=== PATIENT | female | born 1965 | race Two or more races ===

== ENCOUNTER 2021-09-30 20:10 | Inpatient (IN) | payer MEDICAID ==
[~2021-09-30] VITALS: Ht 160 cm; Wt 68.0 kg
[2021-09-30 20:19] VITALS: BP 104/51
--- NOTE | 2021-09-30 20:24 | NUR ---
PT TAKEN TO BED 02 VIA WHEELCHAIR.
[2021-09-30] MEDS ORDERED: NACL 0.9% 1,000 ML IV ONE ×2 (20:50→21:55)
--- NOTE | 2021-09-30 20:50 | NUR ---
56 Y.O F BIB C/O abdominal pain x 2 days. Patient reported, had lower abdominal pain, fever, chest pain for 2 days. DENIES N/V/D, SON AND CHEST PAIN. PAIN IS A 8/10 IN THE LOWER ABDOMEN. PT SAID SHE ALREADY HAS A BLADDER INFECTION THAT SHE WAS TAKING ANTIBIOTICS FOR. PT IS PARALYSED FROM THE WAIST DOWN. VITALS WNL, NO FEVER, SKIN INTACT AND INCONTENT OF BOWEL AND BLADDER. HX: LUPUS NKA
[2021-09-30] MEDS ORDERED: ONDANSETRON 4 MG/2 ML VIAL IVP ONE (21:05)
[2021-09-30] MEDS ORDERED: MORPHINE SULFATE 4 MG/ML SYR IVP ONE (21:05)
[2021-09-30 21:09] LABS: HEMATOCRIT 28.7 % (36-48); HEMOGLOBIN 9.9 g/dL (12.0-16.0); MEAN CORPUSCULAR HEMOGLOBIN 28 pg (27-31); MEAN CORPUSCULAR HGB CONC 34 g/dL (33-37); MEAN CORPUSCULAR VOLUME 81.9 fL (80-94); PLATELET COUNT (AUTO) 317 K/uL (140-450); RED BLOOD CELL COUNT(AUTO) 3.51 MIL/uL (4.20-5.40); RED CELL DISTRIBUTION WIDTH 13.4 % (11.6-13.7); WHITE BLOOD COUNT (AUTO) 23.1 K/uL (4.8-10.8)
--- NOTE | 2021-09-30 21:20 | NUR ---
PT TAKEN TO CT
[2021-09-30] MEDS ORDERED: cefTRIAXone 1,000 MG VIAL ONE (21:23)
[2021-09-30 21:30] LABS: ALBUMIN 2.2 g/dL (3.4-5.0); ANION GAP 13.7 (8-16); CARBON DIOXIDE 24.8 mmol/L (21-32); CREATININE 0.9 mg/dL (0.6-1.3); TOTAL BILIRUBIN 1.1 mg/dL (0.0-1.0)
[2021-09-30 21:33] LABS: POTASSIUM 2.5 mmol/L (3.5-5.1)
[2021-09-30 21:56] LABS: LYMPHOCYTES % (MANUAL) 5 % (20-46); MONOCYTES % (MANUAL) 3 % (5-12)
[2021-09-30 23:14] LABS: APPEARANCE,URINE CLEAR (CLEAR); BILIRUBIN,URINE NEGATIVE (NEGATIVE); BLOOD, URINE NEGATIVE (NEGATIVE); COLOR,URINE ORANGE (YELLOW); LEUKOCYTE ESTERASE ,URINE 2+ (NEGATIVE); NITRITE, URINE POSITIVE (NEGATIVE); UGLUCOSE 1+ (NEGATIVE)
[2021-09-30 23:33] LABS: RBC,URINE 0-5 /HPF (0-5); WBC,URINE TOO MANY TO COUNT /HPF (0-5)
[2021-09-30 23:48] LABS: BARBITURATE, URINE NEGATIVE ng/ml (NEG <=200); BENZODIAZEPINE, URINE NEGATIVE ng/mL (NEG <=200); CANNABINOID, URINE NEGATIVE ng/mL (NEG <=50); COCAINE, URINE NEGATIVE ng/mL (NEG <=300); OPIATE, URINE POSITIVE ng/mL (NEG <=2000); PHENCYCLIDINE SCREEN,URINE NEGATIVE ng/mL (NEG <=25)
[2021-09-30] MEDS ORDERED: KCL 20 MEQ/WATER INJ PREMIX 200 ML IV ONE (23:55)
--- NOTE | 2021-10-01 00:35 | NUR ---
UNABLE TO GET MED REC FROM PT IN THE ER. TRY AND CALL FAMILY IN THE MORNING TO RECIEVE MED REC.
--- NOTE | 2021-10-01 00:45 | NUR ---
PATIENT WAS BROUGHT TO MST UNIT FROM ER VIA GURNEY AAOX3. ON ROOM AIR. NO SOB NOTED. RESPIRATION EVEN UNLABORED. TRANSFERRED TO BED SAFELY. ALL SAFETY PRECAUTIONS ARE IN PLACE. ORIENTED TO CALL LIGHT, ROOM AND STAFF. SKIN INTACT. MRSA SCREENING DONE. CALL LIGHT WITHIN REACH. WILL CONTINUE TO MONITOR PT.
--- NOTE | 2021-10-01 01:10 | NUR ---
K-RIDER ADMINISTERED ORDERED.
[2021-10-01] MEDS: NACL 0.9% 1,000 ML IV SCH ×4 (01:30→20:00)
[2021-10-01 04:00] VITALS: BP 110/46
--- NOTE | 2021-10-01 07:20 | NUR ---
BEDSIDE ENDORSEMENT GIVEN TO AM NURSE FOR CONTINUITY OF CARE. PT STABLE.
--- NOTE | 2021-10-01 07:22 | NUR ---
RECEIVED REPORT FROM SUPERVISOR SCREEN PRINTING NURSE FOR CONTINUITY OF CARE. PT IN BED SLEEPING AT THIS TIME. RESPIRATIONS ARE EVEN AND UNLABORED ON ROOM AIR. NO SIGNS OF DISTRESS NOTED. NOTED PT IS PERSPIRING, REMOVED A FEW BLANKETS FROM PT. PT IS ALERT AND ORIENTED X4, ABLE TO FOLLOW COMMANDS, ABLE TO VERBALIZE NEEDS. SKIN INTACT. IV NOTED TO R AC 20G. CALL LIGHT WITHIN REACH. ALL SAFETY MEASURES IN PLACE. WILL CONTINUE TO MONITOR.
[2021-10-01 08:00] VITALS: BP 142/53
[2021-10-01] MEDS: HYDROcodone/APAP 5/325 MG 1 TAB TAB PO PRN ×2 (08:24→19:20)
--- NOTE | 2021-10-01 08:25 | NUR ---
PT COMPLAINING OF PAIN. MEDICATED PER MD ORDER. WILL CONTINUE TO MONITOR.
[2021-10-01 08:35] LABS: ANION GAP 9.5 (8-16); CARBON DIOXIDE 25.1 mmol/L (21-32); CREATININE 0.6 mg/dL (0.6-1.3)
[2021-10-01 08:36] LABS: HEMATOCRIT 24.8 % (36-48); HEMOGLOBIN 8.4 g/dL (12.0-16.0); MEAN CORPUSCULAR HEMOGLOBIN 28 pg (27-31); MEAN CORPUSCULAR HGB CONC 34 g/dL (33-37); MEAN CORPUSCULAR VOLUME 81.8 fL (80-94); PLATELET COUNT (AUTO) 307 K/uL (140-450); RED BLOOD CELL COUNT(AUTO) 3.04 MIL/uL (4.20-5.40); RED CELL DISTRIBUTION WIDTH 13.9 % (11.6-13.7); WHITE BLOOD COUNT (AUTO) 24.3 K/uL (4.8-10.8)
[2021-10-01 09:02] LABS: POTASSIUM 2.6 mmol/L (3.5-5.1)
--- NOTE | 2021-10-01 09:05 | NUR ---
LAB CALLED TO REPORT CRITICAL VALUE, POTASSIUM IS 2.6, DR CABRERA MADE AWARE. WILL CONTINUE TO MONITOR.
--- NOTE | 2021-10-01 09:25 | NUR ---
WENT TO RE-ASSESS PT. PT IN BED RESTING AT THIS TIME. RESPIRATIONS ARE EVEN AND UNLABORED. NO SIGNS OF DISTRESS NOTED.
[2021-10-01] MEDS ORDERED: POTASSIUM CHLORIDE 10 MEQ TABER PO SCH (10:00)
[2021-10-01] MEDS ORDERED: POTASSIUM CHLORIDE 40 MEQ, LIDOCAINE MPF 1% 25 MG in NACL 0.9% 250 ML IV SCH (10:30)
--- NOTE | 2021-10-01 10:51 | NUR ---
PATIENT HAS BEEN SCREENED AND CATEGORIZED HIGH NUTRITION RISK. PATIENT WILL BE SEEN WITHIN 1-2 DAYS OF ADMISSION. 10/01/ REFERRAL RECEIVED FOR UNINTENTIONAL WEIGHT LOSS AND DECREASED APPETITE LEILANI ALVAREZ RD
[2021-10-01 12:00] VITALS: BP 94/68
[2021-10-01 12:48] LABS: BASOPHILS % (AUTO) 0.3 % (0.0-2.0); EOSINOPHILS # (AUTO) 0.1 K/uL (0-0.4); EOSINOPHILS % (AUTO) 0.4 % (0.0-4.0); LYMPHOCYTES # (AUTO) 1.8 K/uL (2.5-16.5); LYMPHOCYTES % (AUTO) 7.6 % (20.5-51.1); MONOCYTES # (AUTO) 2.4 K/uL (0.8-1.0); MONOCYTES % (AUTO) 9.8 % (1.7-9.3); NEUTROPHILS # (AUTO) 19.9 K/uL (1.8-7.7); NEUTROPHILS % (AUTO) 81.9 % (42.2-75.2); PLATELET COUNT,MANUAL 307 K/uL (150-450)
[2021-10-01 12:49] LABS: BASOPHILS # (AUTO) 0.1 K/uL (0.00-0.22); LYMPHOCYTES % (MANUAL) 6 % (20-46); MONOCYTES % (MANUAL) 7 % (5-12)
[2021-10-01] MEDS ORDERED: MAG SULF 2000 MG/WATER PREMIX 50 ML IV PRN (13:10)
[2021-10-01] MEDS ORDERED: HYDROcodone/APAP 5/325 MG 1 TAB TAB PO PRN (13:10)
[2021-10-01] MEDS ORDERED: ZOLPIDEM 5 MG TAB PO PRN (13:10)
[2021-10-01] MEDS ORDERED: DOCUSATE SODIUM 100 MG GELCAP PO PRN (13:10)
[2021-10-01] MEDS ORDERED: ONDANSETRON 4 MG/2 ML VIAL IM/IVP PRN (13:10)
[2021-10-01] MEDS ORDERED: POTASSIUM CHLORIDE 10 MEQ TABER PO PRN (13:10)
[2021-10-01] MEDS ORDERED: LORazepam 1 MG TAB PO PRN (13:20)
--- NOTE | 2021-10-01 13:24 | NUR ---
WENT TO CHECK ON PT. PT IN BED RESTING AT THIS TIME. NO S/S OF PAIN OR DISCOMFORT. WILL CONTINUE TO MONITOR.
--- NOTE | 2021-10-01 15:25 | NUR ---
DC PLANNING: THE PATIENT PRESENTED FROM HOME WITH C/O WORSENING LOWER ABDOMINAL PAIN WITH NAUSEA. BEING TREATED OP WITH CIPRO FOR UTI, WBC'S ON ADMISSION 23.1, BANDS 19, K+ 2.5, LACTIC ACID 3.1, ALK PHOS 228, UA POSITIVE. CT ABD/PELVIS SHOWS BILATERAL HYDROURETERONEPHROSIS, HEPATOMEGALY, DIVERTICULOSIS. TMAX TODAY 99.8, URINE AND BLOOD CULTURES IN PROCESS, STARTED ON ROCEPHIN, K+ RIDER GIVEN. ORDERS FOR UROLOGY CONSULT. CM ATTEMPTED TO SPEAK WITH PATIENT AT BEDSIDE, SHE WAS SLEEPING HEAVILY AND DID NOT AROUSE TO VERBAL STIMULUS. ANTICIPATE PATIENT WILL RETURN HOME WITH HER WHEN STABLE, CM WILL FOLLOW.
[2021-10-01] MEDS ORDERED: DEXTROSE 50% 50 ML SYR IVP PRN (15:40)
--- NOTE | 2021-10-01 15:49 | NUR ---
10/01/21 RD INITIAL ASSESSMENT COMPLETED PLEASE REFER TO NUTRITION ASSESSMENT UNDER CARE ACTIVITY FOR ESTIMATED NUTRITIONAL NEEDS. 1. CONTINUE REGULAR DIET TOLERATED 2. RECOMMEND ENSURE BID FOR NUTRITION SUPPORT 3. MONITOR PO INTAKE 4. RD TO FOLLOW-UP 2-3 DAYS, HIGH RISK LEILANI ALVAREZ, RD
[2021-10-01 16:00] VITALS: BP 128/58
[2021-10-01 16:00] LABS: PROTHROMBIN TIME 11.7 secs (10.8-13.4)
[2021-10-01] MEDS: INSULIN LISPRO SLIDING SCALE 100 UNITS/ML VIAL SUBQ PRN ×2 (17:01→20:59)
[2021-10-01] MEDS: BLOOD GLUCOSE MONITORING 1 DEV DEV FS SCH ×2 (17:02→20:58)
--- NOTE | 2021-10-01 17:02 | NUR ---
PT BLOOD GLUCOSE WAS 400. ADMINISTERED 10 UNITS INSULIN PER SLIDING SCALE. DR CABRREA MADE AWARE. WILL CONTINUE TO MONITOR.
[2021-10-01] MEDS ORDERED: METF-713 PO (17:06)
[2021-10-01] MEDS ORDERED: VANCOMYCIN PER PHARMACY MC PRN (17:50)
--- NOTE | 2021-10-01 17:58 | NUR ---
NOTICED PT WAS SWEATING. PT RUNNING LOW GRADE FEVER. COOLING MEASURES STARTED. WILL CONTINUE TO MONITOR.
[2021-10-01] MEDS: VANCOMYCIN 750 MG in DEXTROSE 5% 250 ML IV SCH (18:28)
--- NOTE | 2021-10-01 19:15 | NUR ---
LAB CALLED WITH CRITICAL VALUE, LACTIC ACID 3.5, DR CABRERA MADE AWARE. NEW ORDERS PLACED.
--- NOTE | 2021-10-01 19:20 | NUR ---
PT COMPLAINING OF PAIN. STATES PAIN IS 5/10. MEDICATED PER MD ORDER. WILL ENDORSE TO STOREKEEPER ENGINEERING NURSE.
--- NOTE | 2021-10-01 19:31 | NUR ---
ENDORSED PT TO CURING OVEN TENDER NURSE FOR CONTINUITY OF CARE. PT IS STABLE.
--- NOTE | 2021-10-01 19:33 | NUR ---
RECD. RESTING IN BED, AWAKE, A/OX2. ABLE TO VERBALIZED NEEDS. REORIENTED TO HOSPITAL SETTING. RESPIRATION EVEN AND UNLABORED. IV VANCOMYCIN INFUSING T 165 ML/HR, RIGHT AC G20. SAFETY MEASURES ENFORCED. BED IN THE LOWEST POSITION, SIDE RAILS UP, CALL LIGHT IN REACH. INCONTINENT. DENIES PAIN 0/10.
[2021-10-01 20:00] VITALS: BP 124/57
--- NOTE | 2021-10-01 20:00 | NUR ---
Patient's Plan of Care was discussed and reviewed with KYLER PEÑA.
[2021-10-01] MEDS: ACETAMINOPHEN 325 MG TAB PO PRN (20:48)
--- NOTE | 2021-10-01 20:48 | NUR ---
WITH FEVER 101.1, MEDICATED WITH TYLENOL. COLING MEASURES GIVEN.
[2021-10-01] MEDS: CEFEPIME 1,000 MG in DEXTROSE 5% 50 ML IV SCH (21:00)
--- NOTE | 2021-10-01 21:50 | NUR ---
TEMPERATURE CHECKED - 98.2 F. RESTING IN BED COMFORTABLY.
[2021-10-02] VITALS: BP 91/50
--- NOTE | 2021-10-02 | NUR ---
SLEEPING COMFORTABLY IN BED. RESPIRATION EVEN AND UNLABORED. DIAPER CHANGED.
[2021-10-02] MEDS: NACL 0.9% 1,000 ML IV SCH ×5 (02:40→23:18)
--- NOTE | 2021-10-02 03:00 | NUR ---
CLEANSED AND REPOSITIONED WITH BED WITH PILLOWS FOR COMFORT.
[2021-10-02 04:00] VITALS: BP 118/57
[2021-10-02] MEDS ORDERED: VANCOMYCIN 1,000 MG VIAL ONE (04:59)
[2021-10-02] MEDS: VANCOMYCIN 750 MG in DEXTROSE 5% 250 ML IV SCH (05:19)
[2021-10-02] MEDS: ACETAMINOPHEN 325 MG TAB PO PRN (06:08)
--- NOTE | 2021-10-02 06:08 | NUR ---
TEMPERATURE - 100.7, MEDICATED WITH TYLENOL, COOLING MEASURES GIVEN.
[2021-10-02] MEDS: BLOOD GLUCOSE MONITORING 1 DEV DEV FS SCH ×4 (06:28→20:50)
[2021-10-02] MEDS: INSULIN LISPRO SLIDING SCALE 100 UNITS/ML VIAL SUBQ PRN ×4 (06:29→20:56)
--- NOTE | 2021-10-02 07:10 | NUR ---
TEMPERATURE CHECKED - 99.8 F. CONTINUE COOLING MEASURES.
[2021-10-02 07:19] LABS: CARBON DIOXIDE 22.9 mmol/L (21-32); CREATININE 0.6 mg/dL (0.6-1.3)
[2021-10-02 07:30] LABS: BASOPHILS # (AUTO) 0.1 K/uL (0.00-0.22); BASOPHILS % (AUTO) 0.4 % (0.0-2.0); EOSINOPHILS # (AUTO) 0.2 K/uL (0-0.4); EOSINOPHILS % (AUTO) 0.9 % (0.0-4.0); HEMATOCRIT 22.6 % (36-48); HEMOGLOBIN 7.8 g/dL (12.0-16.0); LYMPHOCYTES # (AUTO) 2.1 K/uL (2.5-16.5); LYMPHOCYTES % (AUTO) 9.3 % (20.5-51.1); MEAN CORPUSCULAR HEMOGLOBIN 29 pg (27-31); MEAN CORPUSCULAR HGB CONC 35 g/dL (33-37); MEAN CORPUSCULAR VOLUME 83.2 fL (80-94); MONOCYTES # (AUTO) 2.3 K/uL (0.8-1.0); MONOCYTES % (AUTO) 9.8 % (1.7-9.3); NEUTROPHILS # (AUTO) 18.3 K/uL (1.8-7.7); NEUTROPHILS % (AUTO) 79.6 % (42.2-75.2); PLATELET COUNT (AUTO) 294 K/uL (140-450); RED BLOOD CELL COUNT(AUTO) 2.72 MIL/uL (4.20-5.40)
--- NOTE | 2021-10-02 07:30 | NUR ---
WILL ENDORSE TO AM SHIFT NURSE FOR CONTINUITY OF CARE.
--- NOTE | 2021-10-02 07:32 | NUR ---
RECEIVED PATIENT REPORT FROM WORKFORCE ADVISOR NURSE FOR CONTINUITY OF CARE. AWAKE, A/OX2. ABLE TO VERBALIZED NEEDS. REORIENTED TO HOSPITAL SETTING. RESPIRATION EVEN AND UNLABORED. IV SITE ON RAC 20 G INTACT AND PATENT, INFUSING FLUIDS WELL. PLAN OF CARE DISCUSSED. SAFETY MEASURES ENFORCED. BED IN THE LOWEST POSITION, SIDE RAILS UP, CALL LIGHT IN REACH. WILL CONTINUE TO MONITOR.
[2021-10-02 07:45] LABS: POTASSIUM 2.9 mmol/L (3.5-5.1)
[2021-10-02 08:00] VITALS: BP 108/54
[2021-10-02 08:03] LABS: CHOL/HDL RATIO 7.4 (1-4.5); MAGNESIUM 1.6 mg/dL (1.8-2.4); PHOSPHORUS 2.7 mg/dL (2.5-4.9)
[2021-10-02 08:08] LABS: T4 (THYROXINE) 10.3 ug/dL (4.5-12.0)
[2021-10-02] MEDS: TAMSULOSIN 0.4 MG CAP PO SCH (09:09)
[2021-10-02] MEDS: CEFEPIME 1,000 MG in DEXTROSE 5% 50 ML IV SCH ×2 (09:11→20:41)
[2021-10-02] MEDS: POTASSIUM CHLORIDE 20% 40 MEQ/15 ML UDC PO PRN (09:22)
[2021-10-02] MEDS ORDERED: POTASSIUM CHLORIDE 40 MEQ, LIDOCAINE MPF 1% 25 MG in NACL 0.9% 250 ML IV SCH (09:30)
--- NOTE | 2021-10-02 10:00 | NUR ---
INSERTED NEW IV ON LFA 22G. INTACT AND PATENT.
--- NOTE | 2021-10-02 10:10 | NUR ---
INSERTED NEW 16 FR BHAKTA CATHETER. 900 ML OUTPUT.
[2021-10-02 12:00] VITALS: BP 92/59
--- NOTE | 2021-10-02 14:50 | NUR ---
CHECKED ON PATIENT. PT IS STABLE. NO DISTRESS NOTED. WILL CONTINUE TO MONITOR.
[2021-10-02 16:00] VITALS: BP 143/59
--- NOTE | 2021-10-02 18:14 | NUR ---
ALL SCHEDULED MEDS GIVEN. PT IS STABLE. NO DISTRESS NOTED. WILL CONTINUE TO MONITOR.
--- NOTE | 2021-10-02 19:27 | NUR ---
ENDORSED TO COACH NURSE FOR CONTINUITY OF CARE. PT IS STABLE.
--- NOTE | 2021-10-02 19:40 | NUR ---
GET THE REPORT FROM MORNING NURSE VANDANA ,PATIENT IS LYING ON BED, PATIENT IS ALERT ORIENTED X3 , CALL LIGHT IS WITHIN THE REACH,WILL CONTINUE TO MONITOR PATIENT.
[2021-10-02 20:00] VITALS: BP 135/58
[2021-10-02] MEDS: HYDROcodone/APAP 5/325 MG 1 TAB TAB PO PRN (20:42)
--- NOTE | 2021-10-02 20:42 | NUR ---
PATIENT IS LYING ON BED, VITAL SIGN IS WITHIN THE NORMAL RANGE, PATIENT IS COMPLAINING OF PAIN IN HEAD 09/19 , NORCO 5/325 MG PO PRN IS GIVEN PER DOCTOR ORDER, WILL REASSESS PAIN LAVAL IN HOUR , CALL LIGHT IS WITHIN THE REACH, WILL CONTINUE TO MONITOR PATIENT,
[2021-10-03] VITALS: BP 134/69
--- NOTE | 2021-10-03 00:57 | NUR ---
PATIENT IS LYING ON BED, VITAL SIGN IS WITHIN THE NORMAL RANGE,ALL SCHEDULE MEDICATION IS GIVEN PER DOCTOR ORDER, PATIENT IS COMPLAINING OF NOT POOPED FROM LAST WEDNESDAY , GAVE COLACE PO PRN FOR CONSTIPATION PER DOCTOR ORDER, NO ANY COMPLAIN OF PAIN OR SHORTNESS OF BREATH AT THIS TIME, CALL LIGHT IS WITHIN THE REACH,WILL CONTINUE TO MONITOR PATIENT.
[2021-10-03] MEDS: HYDROcodone/APAP 5/325 MG 1 TAB TAB PO PRN ×3 (02:45→22:41)
--- NOTE | 2021-10-03 02:46 | NUR ---
PATIENT IS LYING ON BED, PATIENT IS COMPLAINING OF PAIN IN STOMACH 09/19, NORCO 5/325MG PO PRN IS GIVEN PER DOCTOR ORDER, VITAL SIGN IS WITHIN THE NORMAL RANGE, CALL LIGHT IS WITHIN THE REACH, WILL CONTINUE TO MONITOR PATIENT.
[2021-10-03 04:00] VITALS: BP 122/60
--- NOTE | 2021-10-03 04:17 | NUR ---
PATIENT IS LYING ON BED, VITAL SIGN IS WITHIN THE NORMAL RANGE, NO ANY COMPLAIN OF PAIN OR SHORTNESS OF BREATH AT THIS TIME, CALL LIGHT IS WITHIN THE REACH,WILL CONTINUE TO MONITOR PATIENT.
[2021-10-03] MEDS: BLOOD GLUCOSE MONITORING 1 DEV DEV FS SCH ×4 (06:49→20:49)
[2021-10-03 07:13] LABS: ANION GAP 8.9 (8-16); CARBON DIOXIDE 26.1 mmol/L (21-32); CREATININE 0.5 mg/dL (0.6-1.3)
[2021-10-03 07:27] LABS: BASOPHILS # (AUTO) 0.1 K/uL (0.00-0.22); BASOPHILS % (AUTO) 0.5 % (0.0-2.0); EOSINOPHILS # (AUTO) 0.3 K/uL (0-0.4); EOSINOPHILS % (AUTO) 1.8 % (0.0-4.0); HEMATOCRIT 22.6 % (36-48); HEMOGLOBIN 7.7 g/dL (12.0-16.0); LYMPHOCYTES # (AUTO) 2.4 K/uL (2.5-16.5); MEAN CORPUSCULAR HEMOGLOBIN 28 pg (27-31); MEAN CORPUSCULAR HGB CONC 34 g/dL (33-37); MEAN CORPUSCULAR VOLUME 83.1 fL (80-94); MONOCYTES # (AUTO) 1.7 K/uL (0.8-1.0); MONOCYTES % (AUTO) 10.7 % (1.7-9.3); NEUTROPHILS # (AUTO) 11.4 K/uL (1.8-7.7); PLATELET COUNT (AUTO) 327 K/uL (140-450); RED BLOOD CELL COUNT(AUTO) 2.73 MIL/uL (4.20-5.40); RED CELL DISTRIBUTION WIDTH 13.4 % (11.6-13.7); WHITE BLOOD COUNT (AUTO) 15.8 K/uL (4.8-10.8)
--- NOTE | 2021-10-03 07:30 | NUR ---
GAVE THE REPORT TO MORNING NURSE VANDANA FOR CONTINUOS OF CARE, PATIENT IS STABLE
--- NOTE | 2021-10-03 07:32 | NUR ---
RECEIVED PATIENT REPORT FROM ASSISTANT EDUCATION DIRECTOR NURSE FOR CONTINUITY OF CARE. AWAKE, A/OX3. ABLE TO VERBALIZED NEEDS. REORIENTED TO HOSPITAL SETTING. RESPIRATION EVEN AND UNLABORED. IV SITE ON LFA 22G INTACT AND PATENT, INFUSING FLUIDS WELL. PLAN OF CARE DISCUSSED. SAFETY MEASURES ENFORCED. BED IN THE LOWEST POSITION, SIDE RAILS UP, CALL LIGHT IN REACH. WILL CONTINUE TO MONITOR.
[2021-10-03 07:40] LABS: MAGNESIUM 1.4 mg/dL (1.8-2.4); PHOSPHORUS 3.7 mg/dL (2.5-4.9)
[2021-10-03 08:00] VITALS: BP 148/74
[2021-10-03] MEDS: TAMSULOSIN 0.4 MG CAP PO SCH (08:59)
[2021-10-03] MEDS: CEFEPIME 1,000 MG in DEXTROSE 5% 50 ML IV SCH ×2 (09:01→20:34)
--- NOTE | 2021-10-03 09:10 | NUR ---
ALL SCHEDULED MEDS GIVEN. PT IS STABLE. NO DISTRESS NOTED. WILL CONTINUE TO MONITOR.
[2021-10-03] MEDS: POTASSIUM CHLORIDE 20% 40 MEQ/15 ML UDC PO PRN (10:48)
[2021-10-03] MEDS: INSULIN LISPRO SLIDING SCALE 100 UNITS/ML VIAL SUBQ PRN ×3 (11:22→20:51)
--- NOTE | 2021-10-03 11:22 | NUR ---
BS CHECK WAS 391. ADMINISTERED 10 UNITS OF INSULIN SQ PER MD ORDERED.
[2021-10-03 12:00] VITALS: BP 118/63
--- NOTE | 2021-10-03 13:47 | NUR ---
10/03/21 RD FOLLOW UP COMPLETED PLEASE REFER TO NUTRITION ASSESSMENT UNDER CARE ACTIVITY FOR ESTIMATED NUTRITIONAL NEEDS. 1. CONTINUE CARDIAC PUREE DIET TOLERATED 2. RECOMMEND GLUCERNA TID FOR NUTRITION SUPPORT 3. MONITOR PO INTAKE AND GI SYMPTOMS -IF PT CONTINUES TO BE CONSTIPATED, RECOMMEND MEDICATION FOR GI MOTILITY OR STOOL SOFTENER 4. RD TO FOLLOW-UP 3-5 DAYS, MODERATE RISK LEILANI ALVAREZ RD
--- NOTE | 2021-10-03 15:29 | NUR ---
CHECKED ON PATIENT. PT IS STABLE. NO DISTRESS NOTED. WILL CONTINUE TO MONITOR.
[2021-10-03 16:00] VITALS: BP 140/72
--- NOTE | 2021-10-03 17:57 | NUR ---
BS CHECK WAS 166. ADMINISTERED 2 UNITS OF INSULIN SQ PER MD ORDERED.
--- NOTE | 2021-10-03 19:20 | NUR ---
ENDORSED TO RESEARCH STATISTICIAN NURSE FOR CONTINUITY OF CARE. PT IS STABLE.
--- NOTE | 2021-10-03 19:21 | NUR ---
RECEIVED REPORT FROM MORNING SHIFT NURSE. PT IN BED RESTING AT THIS TIME. RESPIRATIONS ARE EVEN AND UNLABORED ON ROOM AIR. NO SIGNS OF DISTRESS NOTED. NO S/S OF PAIN OR DISCOMFORT NOTED. PT IS ALERT AND ORIENTED X4. ABLE TO VERBALIZE NEEDS, ABLE TO FOLLOW COMMANDS. PT HAS IV TO L AC, 20G. CALL LIGHT WITHIN REACH. ALL SAFETY MEASURES IN PLACE. WILL CONTINUE TO MONITOR.
[2021-10-03 20:00] VITALS: BP 130/60
--- NOTE | 2021-10-03 20:36 | NUR ---
ALL SCHEDULED PRESCRIBED MEDICATION WAS GIVEN PER MD'S ORDER. PT TOLERATING IT WELL. WILL CONTINUE TO MONITOR.
[2021-10-03] MEDS: NACL 0.9% 1,000 ML IV SCH (21:02)
--- NOTE | 2021-10-03 22:41 | NUR ---
PRN PAIN MEDICATION WAS GIVEN TO PT PER MD'S ORDER DUE TO STOMACH ACHE. CRACKERS, GELLO AND WATER WAS ALSO PROVIDED TO PT. WILL CONTINUE AND MONITOR.
--- NOTE | 2021-10-03 23:14 | NUR ---
PT COMPLAINED OF ACID REFLUX AND CONSTIPATION. NOTIFIED DR. HARRELL WITH NEW ORDERS CARRIED OUT. WILL CONTINUE TO MONITOR.
[2021-10-04] VITALS: BP 108/57
[2021-10-04] MEDS: CALCIUM CARBONATE 500 MG TAB.CHEW PO SCH ×2 (00:38→08:43)
[2021-10-04] MEDS: POLYETHYLENE GLYCOL 17 GM/PKT PO SCH ×2 (00:38→08:44)
[2021-10-04] MEDS: NACL 0.9% 1,000 ML IV SCH (00:38)
--- NOTE | 2021-10-04 00:38 | NUR ---
PRESCRIBED MIRALAX AND TUMS WAS GIVEN. PATIENT TOLERATING IT WELL. WILL CONTINUE TO MONITOR.
--- NOTE | 2021-10-04 03:00 | NUR ---
PT IS ON SLEEP. CHEST RISE AND FALL ASYMMETRICALLY WAS NOTED. RESPIRATIONS ARE EVEN AND UNLABORED ON ROOM AIR. NO SIGNS OF DISTRESS NOTED. CALL LIGHT WITHIN REACH. ALL SAFETY MEASURES IMPLEMENTED. WILL CONTINUE TO MONITOR.
[2021-10-04 04:00] VITALS: BP 126/70
[2021-10-04] MEDS: BLOOD GLUCOSE MONITORING 1 DEV DEV FS SCH ×2 (06:43→11:54)
--- NOTE | 2021-10-04 06:43 | NUR ---
BLOOD GLUCOSE WAS CHECKED AND IT WAS 157. 2 UNITS OF INSULIN WAS GIVEN PER MD'S ORDER.
[2021-10-04] MEDS: INSULIN LISPRO SLIDING SCALE 100 UNITS/ML VIAL SUBQ PRN ×2 (06:51→12:58)
[2021-10-04 07:09] LABS: BASOPHILS # (AUTO) 0.1 K/uL (0.00-0.22); BASOPHILS % (AUTO) 0.5 % (0.0-2.0); EOSINOPHILS # (AUTO) 0.5 K/uL (0-0.4); EOSINOPHILS % (AUTO) 3.3 % (0.0-4.0); HEMOGLOBIN 8.8 g/dL (12.0-16.0); LYMPHOCYTES # (AUTO) 2.9 K/uL (2.5-16.5); LYMPHOCYTES % (AUTO) 18.1 % (20.5-51.1); MEAN CORPUSCULAR HEMOGLOBIN 28 pg (27-31); MEAN CORPUSCULAR HGB CONC 34 g/dL (33-37); MEAN CORPUSCULAR VOLUME 83.2 fL (80-94); MONOCYTES # (AUTO) 1.6 K/uL (0.8-1.0); MONOCYTES % (AUTO) 9.6 % (1.7-9.3); NEUTROPHILS # (AUTO) 11.2 K/uL (1.8-7.7); NEUTROPHILS % (AUTO) 68.5 % (42.2-75.2); PLATELET COUNT (AUTO) 445 K/uL (140-450); RED BLOOD CELL COUNT(AUTO) 3.12 MIL/uL (4.20-5.40); RED CELL DISTRIBUTION WIDTH 13.6 % (11.6-13.7); WHITE BLOOD COUNT (AUTO) 16.3 K/uL (4.8-10.8)
[2021-10-04 07:27] LABS: ANION GAP 11.3 (8-16); CREATININE 0.6 mg/dL (0.6-1.3); POTASSIUM 3.3 mmol/L (3.5-5.1)
[2021-10-04 07:36] LABS: MAGNESIUM 1.6 mg/dL (1.8-2.4)
--- NOTE | 2021-10-04 07:37 | NUR ---
PT ENDORSED TO MORNING SHIFT FOR CONTINUITY OF CARE.
[2021-10-04 08:00] VITALS: BP 108/61
--- NOTE | 2021-10-04 08:19 | NUR ---
CHANGE OF SHIFT Received report from Ly/Nanci OVALLE. Patient is resting in bed. No acute distress noted. Noted with NS@60 running in IV. Call light within reach. Will continue to monitor.
[2021-10-04] MEDS: TAMSULOSIN 0.4 MG CAP PO SCH (08:42)
[2021-10-04] MEDS: CEFEPIME 1,000 MG in DEXTROSE 5% 50 ML IV SCH (08:46)
[2021-10-04] MEDS ORDERED: POLYETHYLENE GLYCOL 17 GM/PKT PO SCH (09:00)
[2021-10-04] MEDS ORDERED: CALCIUM CARBONATE 500 MG TAB.CHEW PO SCH (09:00)
[2021-10-04 12:00] VITALS: BP 112/54
[2021-10-04] MEDS ORDERED: SULF-954 PO ×2 (13:01→13:03)
--- NOTE | 2021-10-04 15:05 | NUR ---
Patient discharged home with family care. Patient given discharge instructions; verbalized understanding. Patient discharged with benavides catheter as ordered. IV discontinued; telemetry box returned to tech. Respirations even and unlabored; no acute distress noted. Picked up by . Wheelchaired out of unit by AMANDEEP.
== END 2021-10-04 15:05 | disposition home or self-care (01) | DRG 720 ==
LOC: MED 20:10 → MTU 23:52
DX: A41.59 Other Gram-negative sepsis (principal); E43 Unspecified severe protein-calorie malnutrition; G92.9 Unspecified toxic encephalopathy; G82.20 Paraplegia, unspecified; D63.8 Anemia in other chronic diseases classified elsewhere; M32.9 Systemic lupus erythematosus, unspecified; E87.1 Hypo-osmolality and hyponatremia; N13.6 Pyonephrosis; E11.9 Type 2 diabetes mellitus without complications; E78.5 Hyperlipidemia, unspecified; R65.20 Severe sepsis without septic shock; E87.6 Hypokalemia; F15.10 Other stimulant abuse, uncomplicated; K57.30 Diverticulosis of large intestine without perforation or abscess without bleeding; I10 Essential (primary) hypertension; Z20.822 Contact with and (suspected) exposure to COVID-19; E83.42 Hypomagnesemia; Z90.711 Acquired absence of uterus with remaining cervical stump; Z90.49 Acquired absence of other specified parts of digestive tract; Z68.26 Body mass index [BMI] 26.0-26.9, adult
CPT/HCPCS: 36415; 76770; 80048; 80053; 80305; 81001; 82948; 83036; 83605; 83690; 83735; 83880; 84100; 84134; 84436; 84443; 84484; 85025; 85610; 85730; 87040; 87081; 87086; 93005; 96365; 96375; 99291; J0692; J0696; J1644; J1815; J2001; J2270; J2405; J3370; J3475; J3480; J7030; J7060; Q0092

== ENCOUNTER 2022-04-18 11:40 | Inpatient (IN) | payer SELFPAY ==
[~2022-04-18] VITALS: Ht 160 cm; Wt 68.0 kg
[~2022-04-18 11:40] MED LIST: METF-713 PO; SULF-954 PO
[2022-04-18 11:49] VITALS: BP 131/69
[2022-04-18] MEDS ORDERED: NACL 0.9% 2,000 ML IV ONE (11:50)
[2022-04-18] MEDS ORDERED: KETOROLAC 15 MG/ML VIAL IVP ONE ×2 (11:50→16:40)
[2022-04-18] MEDS ORDERED: cefTRIAXone 2,000 MG in DEXTROSE 5% 100 ML IV ONE (11:50)
--- NOTE | 2022-04-18 11:53 | NUR ---
PT BIBA TO BED 8
[2022-04-18] MEDS ORDERED: ACETAMINOPHEN EXTRA STRENGTH 500 MG TAB ONE (11:57)
[2022-04-18] MEDS ORDERED: cefTRIAXone 2,000 MG VIAL ONE (11:57)
[2022-04-18] MEDS ORDERED: ACETAMINOPHEN EXTRA STRENGTH 500 MG TAB PO ONE (12:00)
--- NOTE | 2022-04-18 12:00 | NUR ---
57/F BIBA FROM HOME C/O RIGHT SIDED FLANK PAIN RADIATING TO ABD ONSET 3DAYS ACCOMPANIED BY NAUSEA AND DYSURIA. PT ORAL TEMP @ TRIAGE 102.7 ORAL. AAO4, NONAMBULATORY, REPORTS 10/10 PAIN. NOT ACTIVELY VOMITING. DENIES DIARRHEA. PMH: DM
--- NOTE | 2022-04-18 12:19 | NUR ---
EKG DONE AT BEDSIDE. BLOOD DRAWN AND SENT TO LAB. PT ON MONITOR. IV ESTABLISHED TO RIGHT AC WITH 20G.
--- NOTE | 2022-04-18 12:21 | NUR ---
XR AT BEDSIDE
--- NOTE | 2022-04-18 12:29 | NUR ---
FLU AND COVID SWAB COLLECTED AND SENT TO LAB
[2022-04-18 12:33] LABS: BASOPHILS # (AUTO) 0.1 K/uL (0.00-0.22); BASOPHILS % (AUTO) 0.5 % (0.0-2.0); HEMATOCRIT 34.3 % (36-48); HEMOGLOBIN 11.3 g/dL (12.0-16.0); LYMPHOCYTES % (AUTO) 17.3 % (20.5-51.1); MEAN CORPUSCULAR HEMOGLOBIN 25 pg (27-31); MEAN CORPUSCULAR HGB CONC 33 g/dL (33-37); MEAN CORPUSCULAR VOLUME 76.1 fL (80-94); MONOCYTES # (AUTO) 1.4 K/uL (0.8-1.0); MONOCYTES % (AUTO) 12.3 % (1.7-9.3); NEUTROPHILS # (AUTO) 8.2 K/uL (1.8-7.7); NEUTROPHILS % (AUTO) 69.9 % (42.2-75.2); PLATELET COUNT (AUTO) 287 K/uL (140-450); RED CELL DISTRIBUTION WIDTH 16.6 % (11.6-13.7); WHITE BLOOD COUNT (AUTO) 11.7 K/uL (4.8-10.8)
--- NOTE | 2022-04-18 12:45 | NUR ---
Patient was turned and repositioned, fresh diaper applied. Patient had a bowel movement.
[2022-04-18 12:47] LABS: ALBUMIN 3.1 g/dL (3.4-5.0)
[2022-04-18 13:06] LABS: ANION GAP 13.2 (8-16); ASPARTATE AMINOTRANSFERASE 25 U/L (15-37); CARBON DIOXIDE 20.8 mmol/L (21-32); CHLORIDE 95 mmol/L (98-107); CREATININE 1.4 mg/dL (0.6-1.3); GFR ARICAN-AMERICAN 50 mL/min (>90); GLUCOSE 238 mg/dL (74-106); SODIUM SERUM 126 mmol/L (136-145); TOTAL BILIRUBIN 0.4 mg/dL (0.0-1.0); UREA NITROGEN, BLOOD 30 mg/dL (7-18)
--- NOTE | 2022-04-18 13:36 | NUR ---
Patient taken to CT via gurney.
--- NOTE | 2022-04-18 14:16 | NUR ---
# 8 FR Urinary catheter inserted utilizing sterile technique. Immediate return of 30 ml orange cloudy urine noted. Urine sample collected and sent to lab. Pt tolerated procedure well.
[2022-04-18 15:16] LABS: APPEARANCE,URINE CLEAR (CLEAR); BILIRUBIN,URINE NEGATIVE (NEGATIVE); BLOOD, URINE 2+ (NEGATIVE); COLOR,URINE YELLOW (YELLOW); LEUKOCYTE ESTERASE ,URINE 2+ (NEGATIVE); NITRITE, URINE POSITIVE (NEGATIVE); PH,URINE 5.5 (5.0-9.0); UGLUCOSE TRACE (NEGATIVE)
--- NOTE | 2022-04-18 15:50 | NUR ---
Patient was turned and repositioned.
[2022-04-18 16:06] LABS: RBC,URINE 11-20 (MOD) /HPF (0-5)
--- NOTE | 2022-04-18 16:07 | NUR ---
Attempted to call , no answer. Unable to leave voicemail.
--- NOTE | 2022-04-18 16:09 | NUR ---
Med recon complete.
--- NOTE | 2022-04-18 17:02 | NUR ---
Patient was turned and repositioned. Fresh diaper was applied.
--- NOTE | 2022-04-18 17:18 | NUR ---
Spoke to Dr. Medina was informed, he will input admit orders in 10-15 minutes.
[2022-04-18] MEDS ORDERED: NACL 0.9% 1,000 ML IV ONE (18:05)
[2022-04-18] MEDS ORDERED: INSULIN LISPRO SLIDING SCALE 100 UNITS/ML VIAL SUBQ PRN (18:05)
[2022-04-18] MEDS ORDERED: BLOOD GLUCOSE MONITORING 1 DEV DEV FS SCH (18:17)
--- NOTE | 2022-04-18 19:17 | NUR ---
Report given to YAMILE Freire for transfer of care.
--- NOTE | 2022-04-18 21:50 | NUR ---
Patient will be admitted to care of NURIA FINELY. Admited to TELEMETRY. Will go to room 118. Belongings list completed. Report to RACHELL OVALLE.
--- NOTE | 2022-04-18 21:53 | NUR ---
TURNED PT Q2, SKIN BREAKDOWN NOTED , OLD HEALED TUNNELING NOTED ON SACRUM, PICS TAKEN, EXCORIATION NOTE IN PERINIUM FROM STOOLS, PT CLEANED AND KEPT DRY BUT STOOL KEEPS LEAKING OUT. PUREWICK EXCHANGED
--- NOTE | 2022-04-18 22:06 | NUR ---
rn notes received patient from ER, per ASSOCIATE DIRECTOR FINANCEMD made aware of k of 3.0 and no order was given at this time Addendum: 04/18/22 at 2207 by Agency 04 RN RN rn notes received patient from ER, per ASSOCIATE DIRECTOR FINANCEMD YAMILE made aware of k of 3.0
[2022-04-18] MEDS ORDERED: KCL 20 MEQ/WATER INJ PREMIX 100 ML IV SCH (23:00)
[2022-04-18] MEDS ORDERED: POTASSIUM CHLORIDE 20% 40 MEQ/15 ML UDC PO SCH (23:05)
--- NOTE | 2022-04-19 01:57 | NUR ---
rn notes patient removed her IV line. Tried to place a new line. Patient refused a tthis time and wants it retried in the morning.
[2022-04-19 04:05] VITALS: BP 135/80
[2022-04-19] MEDS ORDERED: Z-GUARD PASTE TP PRN (05:00)
[2022-04-19] MEDS ORDERED: FOAM DRESSING TP PRN (05:00)
--- NOTE | 2022-04-19 05:27 | NUR ---
rn notes patient remains on room air, no sob noted. VSS all shift. Incontinent at this time. Pending admission orders from .
[2022-04-19 08:00] VITALS: BP 99/47
[2022-04-19] MEDS ORDERED: MAG SULF 2000 MG/WATER PREMIX 50 ML IV PRN (08:00)
--- NOTE | 2022-04-19 09:32 | NUR ---
PATIENT HAS BEEN SCREENED AND CATEGORIZED HIGH NUTRITION RISK. PATIENT WILL BE SEEN WITHIN 1-2 DAYS OF ADMISSION. 04/18/22-04/20/[address] [facility] REFERRAL RECEIVED FOR VOMITING OVER 3 DAYS.
[2022-04-19] MEDS: FOAM DRESSING TP SCH (09:35)
[2022-04-19 12:00] VITALS: BP 100/52
[2022-04-19] MEDS: Z-GUARD PASTE TP SCH (13:32)
[2022-04-19] MEDS ORDERED: ONDANSETRON 4 MG/2 ML VIAL IVP PRN (14:45)
[2022-04-19] MEDS ORDERED: MORPHINE SULFATE 2 MG/ML SYR IVP PRN (14:45)
[2022-04-19] MEDS ORDERED: LORazepam 2 MG/ML VIAL IVP PRN (14:45)
[2022-04-19] MEDS ORDERED: DOCUSATE SODIUM 100 MG GELCAP PO PRN (14:45)
[2022-04-19] MEDS ORDERED: ZOLPIDEM 10 MG TAB PO PRN (14:45)
[2022-04-19] MEDS ORDERED: ACETAMINOPHEN 325 MG TAB PO PRN (14:45)
[2022-04-19 16:00] VITALS: BP 98/53
--- NOTE | 2022-04-19 19:48 | NUR ---
RECEIVED ENDORSEMENT FROM DAY SHIFT NURSE FOR CONTINUITY OF CARE. PT IS AWAKE, ALERT AND VERBALLY RESPONSIVE. PT REFUSED HER DINNER. DINNER TRAY IS UNTOUCHED. ENCOURAGE PT TO TAKE DINNER EVEN JUST PORTION, PT STILL REFUSED. PT IS WITH BHAKTA CATH, INTACT AND PATENT. IV SITE ON RIGHT FOREARM INTACT AND PATENT. CONTINUE TO MONITOR.
--- NOTE | 2022-04-19 19:49 | NUR ---
ENDORSE PATIENT IN STABLE CONDITION TO PM SHIFT NURSE WITH PIV AT R. FOREARM 22G INFUSING NS. BHAKTA 16FR DRAINING
[2022-04-19 20:00] VITALS: BP 99/53
--- NOTE | 2022-04-19 22:10 | NUR ---
PT REFUSED TO EAT HER DINNER, DINNER MEALS IS UNTOUCHED. PT TOOK 3/4 CUP OF APPLE SAUCE. DIETITIAN PRESCRIBED NEPRO 1 CARTOON BID STARTING TONIGHT.
--- NOTE | 2022-04-19 22:35 | NUR ---
04/19/22 RD INITIAL ASSESSMENT COMPLETED. PLEASE REFER TO NUTRITION ASSESSMENT UNDER CARE ACTIVITY FOR ESTIMATED NUTRITIONAL NEEDS. 1.CONTINUE WITH RENAL DIET; CONSIDER ADDING CCHO IN ADDITION TO RENAL DIET PT TOLERATES. 2.RECOMMEND NEPRO BID TO OPTIMIZE NUTRITIONAL NEEDS. 3.MONITOR PO INTAKE & BLOOD GLUCOSE 4.RD TO FOLLOW-UP 2-3 DAYS, HIGH RISK JL GONZALEZ RD
[2022-04-20] VITALS: BP 91/46
[2022-04-20] MEDS: Z-GUARD PASTE TP SCH ×2 (01:00→13:11)
[2022-04-20] MEDS: KETOROLAC 15 MG/ML VIAL IVP PRN (02:10)
--- NOTE | 2022-04-20 02:10 | NUR ---
PT COMPLAINTS OF ABDOMINAL PAIN 09/19. PAIN MEDICATION TORADOL ADMINISTERED ORDER.
[2022-04-20] MEDS ORDERED: SIMETHICONE 80 MG TAB.CHEW PO PRN (06:10)
[2022-04-20] MEDS ORDERED: NACL 0.9% 1,000 ML IV SCH ×2 (06:10→09:00)
--- NOTE | 2022-04-20 06:15 | NUR ---
PT BLOOD PRESSURE LOW, 3 X CHECKS = 78/41, 76/42 & 75/40. REPORTED TO DR. RICK MD ORDER TO ADMINISTER BOLUS 1 LITER. ORDER CARRY OUT.
--- NOTE | 2022-04-20 07:05 | NUR ---
ENDORSED TO DAY SHIFT NURSE PT IS ON IV BOLUS. PT IS ON STABLE, AWAKE , ALERT AND VERBALLY RESPONSIVE. ALL SAFERTY MEASURES ARE IN PLACE.
[2022-04-20 08:00] VITALS: BP 89/48
[2022-04-20] MEDS: NACL 0.9% 1,000 ML IV SCH ×2 (09:00→19:02)
--- NOTE | 2022-04-20 10:48 | NUR ---
WOUND CARE NOTE: PT. ADMITTED WITH COVID RELATED SKIN FAILURE TO LEFT SACRAL DTI 3X2CM DTI DARK PURPLE, IRREGULAR SHAPE. MOISTURE ASSOCIATED SKIN FAILURE TO MIKE-ANAL SKIN, MOIST AND RED. PT IS AAX4, ABLE TO TURN AND REPOSITION. PT IS AWARE OF SKIN SAUD. EXPLAIN TO PT. COVID RELATED SKIN FAILURE DUE TO TISSUE LESS TOLERATE TO PRESSURE, SHEARING AND POSSIBLE ASSOCIATED WITH MICROVASCULAR INJURY AND HYPOXIA. PT. HAS HX OF DM. COCCYX OLD HEALED WOUND, SKIN INTACT. POC DISCUSSED AND PT. VERBALIZES UNDERSTANDING. WILL CONTINUE FOAM DRESSING TO SACRAL Q3 DAYS AND Z GUARD ORDERED. -POSITIONING: TURN AND REPOSITION PATIENT Q 2H OR SOONER USE PILLOWS TO KEEP BONY PROMINENCES FROM DIRECT CONTACT WITH SURFACES USE REPOSITIONING WEDGES TO PROVIDE 30-DEGREE ANGLE FOR SIDE LYING POSITIONS OFFLOADING OR FOAM DRESSING TO ALL TUBING TO PREVENT MEDICAL DEVICES RELATED PRESSURE INJURY -RE-EVALUATING AND MANAGING INCONTINENCE MONITOR SKIN CONDITION DURING POSITION CHANGE DO NOT MASSAGE REDNESS, BONY PROMINENCES, DO NOT USE DONUT-TYPE DEVICES FREQUENT MIKE-CARE AND PROVIDE BARRIER CREAMS PRN IF SOILING MOISTURE CONTROL BY OFFER BED CATHERINE/URINAL /ABSORBENT PAD TO WICK AND HOLD MOISTURE. KEEP SKIN DRY AND PROTECT FROM FRICTION -MANAGE FRICTION/SHEAR/MOBILITY KEEP HOB AT THE LOWEST LEVEL OF ELEVATION NO MORE THAN 30 DEGREE UNLESS OTHERWISE CONTRAINDICATED USE LIFT SHEET OR TRANSFER DEVICE TO MOVE PATIENT AND PREVENT LATERAL SHEER. PROTECT HEELS, ELBOWS BONY PROMENANCES WITH SKIN BERRIES OR FOAM DRESSING IF EXPOSED TO FRICTION OFFLOAD BILATERAL HEELS BY PLACING PILLOWS UNDER CALVES AT ALL TIMES, UNLESS OTHERWISE CONTRAINDICATED -PRESSURE REDISTRIBUTION SURFACE THERAPY EDGARD ISOFLEX MATTRESS -NUTRITION: PLEASE FOLLOW RD RECOMMENDATIONS AND OFFER NUTRITION SUPPLEMENTS IF ORDERED.
[2022-04-20 11:00] VITALS: BP 128/72
[2022-04-20 12:00] VITALS: BP 96/44
--- NOTE | 2022-04-20 15:02 | NUR ---
DC PLANNING PT POSITIVE FOR COVID, THEREFORE, SW DID NOT MEET W/ PT F2F. SW OUTREACHED TO PT EMERGENCY CONTACT, CESARIO DUBOIS, TO GATHER COLLATERAL INFORMATION HOWEVER, NO ANSWER. SW UNABLE TO LEAVE MESSAGE.
[2022-04-20 15:28] LABS: BASOPHILS % (AUTO) 0.2 % (0.0-2.0); EOSINOPHILS % (AUTO) 0.1 % (0.0-4.0); HEMATOCRIT 23.1 % (36-48); LYMPHOCYTES # (AUTO) 1.4 K/uL (2.5-16.5); LYMPHOCYTES % (AUTO) 12.6 % (20.5-51.1); MEAN CORPUSCULAR HEMOGLOBIN 26 pg (27-31); MEAN CORPUSCULAR HGB CONC 35 g/dL (33-37); MEAN CORPUSCULAR VOLUME 73.6 fL (80-94); MONOCYTES # (AUTO) 0.4 K/uL (0.8-1.0); MONOCYTES % (AUTO) 3.4 % (1.7-9.3); NEUTROPHILS % (AUTO) 83.7 % (42.2-75.2); PLATELET COUNT (AUTO) 223 K/uL (140-450); RED BLOOD CELL COUNT(AUTO) 3.13 MIL/uL (4.20-5.40); RED CELL DISTRIBUTION WIDTH 16.7 % (11.6-13.7); WHITE BLOOD COUNT (AUTO) 10.8 K/uL (4.8-10.8)
[2022-04-20 15:45] LABS: ALBUMIN 1.5 g/dL (3.4-5.0); ANION GAP 11.7 (8-16); CARBON DIOXIDE 18.3 mmol/L (21-32); TOTAL BILIRUBIN 0.2 mg/dL (0.0-1.0)
[2022-04-20 16:00] VITALS: BP 92/54
--- NOTE | 2022-04-20 19:39 | NUR ---
ENDORSE PATIENT IN STABLE CONDITION TO PM SHIFT NURSE WITH PIV AT L. FOREARM 22G INFUSING NS. BHAKTA 16FR DRAINING
[2022-04-20 20:00] VITALS: BP 92/54
[2022-04-21] VITALS: BP 96/51
[2022-04-21] MEDS: Z-GUARD PASTE TP SCH ×2 (01:00→12:43)
[2022-04-21 04:00] VITALS: BP 93/48
[2022-04-21] MEDS: NACL 0.9% 1,000 ML IV SCH ×2 (05:00→15:53)
[2022-04-21 07:31] LABS: BASOPHILS % (AUTO) 0.2 % (0.0-2.0); EOSINOPHILS % (AUTO) 0.3 % (0.0-4.0); HEMATOCRIT 23.8 % (36-48); HEMOGLOBIN 8.3 g/dL (12.0-16.0); LYMPHOCYTES # (AUTO) 1.8 K/uL (2.5-16.5); LYMPHOCYTES % (AUTO) 16.6 % (20.5-51.1); MEAN CORPUSCULAR HEMOGLOBIN 26 pg (27-31); MEAN CORPUSCULAR HGB CONC 35 g/dL (33-37); MEAN CORPUSCULAR VOLUME 73.1 fL (80-94); MONOCYTES # (AUTO) 0.5 K/uL (0.8-1.0); MONOCYTES % (AUTO) 4.4 % (1.7-9.3); NEUTROPHILS # (AUTO) 8.4 K/uL (1.8-7.7); NEUTROPHILS % (AUTO) 78.5 % (42.2-75.2); PLATELET COUNT (AUTO) 238 K/uL (140-450); RED BLOOD CELL COUNT(AUTO) 3.26 MIL/uL (4.20-5.40); RED CELL DISTRIBUTION WIDTH 16.6 % (11.6-13.7); WHITE BLOOD COUNT (AUTO) 10.7 K/uL (4.8-10.8)
[2022-04-21 07:31] LABS: ANION GAP 14.5 (8-16); CARBON DIOXIDE 16.5 mmol/L (21-32); CREATININE 0.7 mg/dL (0.6-1.3)
[2022-04-21 07:37] LABS: MAGNESIUM 1.3 mg/dL (1.8-2.4); PHOSPHORUS 1.7 mg/dL (2.5-4.9)
[2022-04-21 08:00] VITALS: BP 93/48
--- NOTE | 2022-04-21 08:16 | NUR ---
GOT REPORT FROM THE NURSE PT IS AWAKE DISCUSSED POC [id number]
[2022-04-21] MEDS: POTASSIUM CHLORIDE 10 MEQ TABER PO PRN (08:56)
[2022-04-21] MEDS: KCL 20 MEQ/WATER INJ PREMIX 200 ML IV SCH ×2 (10:02→11:11)
[2022-04-21] MEDS ORDERED: MAG SULF 2000 MG/WATER PREMIX 50 ML IV SCH (11:00)
[2022-04-21 12:00] VITALS: BP 94/59
[2022-04-21] MEDS ORDERED: POTASSIUM PHOSPHATE 15 MM in NACL 0.9% 250 ML IV SCH (14:00)
[2022-04-21] MEDS ORDERED: POTASSIUM CHLORIDE 10 MEQ TABER PO SCH (14:00)
[2022-04-21 16:00] VITALS: BP 91/55
--- NOTE | 2022-04-21 16:00 | NUR ---
DISCHARGE PLANNING PATIENT IS A 57 YEAR OLD FEMALE ADMITTED IN THE [facility]/ED ON 04/18/2022 DUE TO SEPSIS 2/2 UTI/ PYELONEP. SW COULD NOT MEET WITH PATIENT ATR BEDSIDE AND INSTEAD CALL PATIENT TO DISCUSS AND GATHER PATIENT'S COLLATERAL INFORMATION. PATIENT WAS AWAKE AN ALERT ABLE TO PROVIDE HER OWN INF. PATIENT REPORTED THAT SHE LIVES HOME WITH HER IN THEIR HOME IN [facility]. PER PATIENT HE HAS LIMITED FAMILY SUPPORT. SHE REPORTED THAT SHE DO NOT HAVE A.D. AND DECLINED ALL FORMS PROVIDED BY YUSRA. PATIENT REPORTED THAT HER CESARIO DUBOIS [phone] IS HER EMERGENCY CONTACT AND HER MEDICAL DECISION MAKER. PATIENT REPORTED HAVING NO PCP DUE TO NOT HAVING INSURANCE AND THAT SHE HAS BEEN CONTACTED BY [facility] TO DISCUSS HER APPLICATION FOR MEDICAL THAT IS PROCESSING. YUSRA EXPLAINED TO PATIENT ABOUT THE IMPORTANCE OF MAKING A FOLLOW UP APPOINTMENT WITH MD WITHIN 5-7 DAYS AFTER HER DISCHARGE. AND PROVIDED HER WITH [facility] RESOURCES AND INFORMATION PUT ON HER CHART. PATIENT AGREED AND REPORTED THAT SHE WILL DO IT AN APPOINTMENT HER SELF. PER PATIENT SHE HAS NO ISSUES WITH TAKING OR GETTING MEDICATIONS FROM HER PHARMACY AT [facility]. IN [facility]. PER PATIENT SHE HAS A WALKER, WHEELCHAIR, AT HOME HER ONLY. PATIENT REPORTED THAT SHE WANTS TO GO HOME WHEN SHE IS READY AND STABLE FOR DISCHARGE;WITH THE ASSISTANCE OF HER WHO WILL PICK HER UP AT DISCHARGE FORM [facility]. YUSRA/KRISSY WILL FOLLOW UP NEEDED.
[2022-04-21 20:00] VITALS: BP 91/55
--- NOTE | 2022-04-21 23:33 | NUR ---
PT COMPLAINTS OF ABDOMINAL PAIN AND GENERAL BODY PAIN 09/19. PAIN MEDICATION MORPHINE ADMINISTERED ORDER.
--- NOTE | 2022-04-21 23:33 | NUR ---
PT COMPLAINTS OF ABDOMINAL PAIN 09/19. PAIN MEDICATION MORPHINE ADMINISTERED ORDER.
[2022-04-22] VITALS: BP 97/59
--- NOTE | 2022-04-22 00:33 | NUR ---
PT IS SLEEPING, NO FACIAL GRIMACING.
[2022-04-22] MEDS: NACL 0.9% 1,000 ML IV SCH ×2 (01:00→11:18)
[2022-04-22] MEDS: Z-GUARD PASTE TP SCH (01:00)
[2022-04-22 04:00] VITALS: BP 121/66
[2022-04-22] MEDS ORDERED: ACETAMINOPHEN 650 MG SUPP RC ONE (06:20)
--- NOTE | 2022-04-22 06:51 | NUR ---
PT HAS ELEVATED BODY TEMPERATURE 100.9 F. TYLENOL 650MG ADMINISTERED ORDERED.
[2022-04-22 07:18] LABS: ANION GAP 13.9 (8-16); CARBON DIOXIDE 18.3 mmol/L (21-32); CREATININE 0.7 mg/dL (0.6-1.3); MAGNESIUM 1.5 mg/dL (1.8-2.4); PHOSPHORUS 1.8 mg/dL (2.5-4.9); POTASSIUM 3.2 mmol/L (3.5-5.1)
--- NOTE | 2022-04-22 07:30 | NUR ---
PT IS ON STABLE CONDITION. ENDORSED TO DAY SHIFT NURSE TO REASSESS BODY TEMP. ALL SAFETY MEASURES ARE IN PLACE.
[2022-04-22] MEDS: KETOROLAC 15 MG/ML VIAL IVP PRN (07:36)
[2022-04-22 07:44] LABS: BASOPHILS % (AUTO) 0.4 % (0.0-2.0); EOSINOPHILS % (AUTO) 0.2 % (0.0-4.0); HEMATOCRIT 25.1 % (36-48); HEMOGLOBIN 8.6 g/dL (12.0-16.0); LYMPHOCYTES % (AUTO) 13.1 % (20.5-51.1); MEAN CORPUSCULAR HEMOGLOBIN 26 pg (27-31); MEAN CORPUSCULAR HGB CONC 35 g/dL (33-37); MEAN CORPUSCULAR VOLUME 74.1 fL (80-94); MONOCYTES # (AUTO) 0.4 K/uL (0.8-1.0); MONOCYTES % (AUTO) 5.9 % (1.7-9.3); NEUTROPHILS # (AUTO) 5.9 K/uL (1.8-7.7); NEUTROPHILS % (AUTO) 80.4 % (42.2-75.2); PLATELET COUNT (AUTO) 260 K/uL (140-450); RED BLOOD CELL COUNT(AUTO) 3.38 MIL/uL (4.20-5.40); RED CELL DISTRIBUTION WIDTH 16.5 % (11.6-13.7); WHITE BLOOD COUNT (AUTO) 7.4 K/uL (4.8-10.8)
--- NOTE | 2022-04-22 07:46 | NUR ---
04/22/2022 0740 PT IN BED C/O PAIN IN ABD. PT MEDICATED PER ORDERS.
[2022-04-22 08:00] VITALS: BP 86/45
[2022-04-22] MEDS: FOAM DRESSING TP SCH (09:00)
[2022-04-22] MEDS: POTASSIUM CHLORIDE 10 MEQ TABER PO PRN (09:31)
[2022-04-22] MEDS ORDERED: MAG SULF 2000 MG/WATER PREMIX 50 ML IV SCH (10:30)
[2022-04-22] MEDS ORDERED: POTA10TA70 PO (10:32)
[2022-04-22] MEDS ORDERED: CEPH-588 PO (10:32)
[2022-04-22] MEDS ORDERED: ASPI-1205 PO (10:32)
[2022-04-22] MEDS ORDERED: K PH1TAB6 PO (10:34)
[2022-04-22] MEDS ORDERED: SLOMAG PO (10:34)
[2022-04-22 12:00] VITALS: BP 96/45
[2022-04-22] MEDS ORDERED: POTASSIUM PHOSPHATE 30 MM in NACL 0.9% 500 ML IV SCH (14:00)
--- NOTE | 2022-04-22 14:24 | NUR ---
PT DISCHARGED HOME , IV AND ID BAND REMOVED , PT LEFT WITH IN W\C ESCORTED WITH NURSE, NO SOB NOR DISCOMFORT.[id number]
--- NOTE | 2022-04-28 16:03 | NUR ---
pt dc'd home on 04/22/22 at 1422
== END 2022-04-22 14:20 | disposition home or self-care (01) | DRG 871 ==
LOC: MED 11:40 → MTU 18:15
PROVIDERS: ADMIT Family Medicine; ATTEND Family Medicine
DX: A41.51 Sepsis due to Escherichia coli [E. coli] (principal); J12.82 Pneumonia due to coronavirus disease 2019; N17.0 Acute kidney failure with tubular necrosis; U07.1 COVID-19; N12 Tubulo-interstitial nephritis, not specified as acute or chronic; E87.1 Hypo-osmolality and hyponatremia; E44.1 Mild protein-calorie malnutrition; N13.6 Pyonephrosis; I25.10 Atherosclerotic heart disease of native coronary artery without angina pectoris; E87.6 Hypokalemia; E11.9 Type 2 diabetes mellitus without complications; K76.0 Fatty (change of) liver, not elsewhere classified; E86.0 Dehydration; E83.42 Hypomagnesemia; E83.39 Other disorders of phosphorus metabolism; Z90.49 Acquired absence of other specified parts of digestive tract; Z68.26 Body mass index [BMI] 26.0-26.9, adult
CPT/HCPCS: 36415; 71045; 76770; 80048; 80053; 81001; 83605; 83735; 84100; 84484; 85025; 87040; 87081; 87086; 93005; 96365; 96375; 97163-GP; 97530; 99291; J0696; J1644; J1885; J2270; J3475; J3480; J7030; J7060; Q0092; Q9967